=== PATIENT | female | born 1995 | race Caucasian/White ===

== ENCOUNTER → 2016-11-25 | Outpatient (REF) | payer OTHER ==
[~2016-11-25] MED LIST: COLA100C3 PO; MOTR200T44 PO; PRENTAB40 PO; TYLE167L PO
== END ==
LOC: M SFHCLERA 17:16
PROVIDERS: ATTEND Nurse Practitioner Family
DX: J02.9 Acute pharyngitis, unspecified (principal)

== ENCOUNTER → 2018-07-31 | Outpatient (REF) | payer OTHER ==
[~2018-07-31] MED LIST changes: -COLA100C3 PO; +COLA100C5 PO
== END ==
LOC: M SFHCLERA 13:18
PROVIDERS: ATTEND Nurse Practitioner Family
DX: R53.81 Other malaise (principal)

== ENCOUNTER → 2021-05-16 | Outpatient (REF) | payer OTHER ==
[2021-05-16 21:58] LABS: APPEARANCE, URINE HAZY (CLEAR); BACTERIA, URINE AUTO NEGATIVE (NEGATIVE); BILIRUBIN, URINE AUTO NEGATIVE (NEGATIVE); BLOOD, URINE BLOOD NEGATIVE (NEGATIVE); COLOR, URINE YELLOW (YELLOW); GLUCOSE, URINE (UA) AUTO NEGATIVE (NEGATIVE); KETONE, URINE AUTO NEGATIVE (NEGATIVE); LEUKOCYTE ESTERASE, URINE AUTO 1+ (NEGATIVE); MUCUS, URINE SMALL (NEGATIVE); NITRITE, URINE AUTO NEGATIVE (NEGATIVE); PROTEIN, URINE AUTO NEGATIVE (NEGATIVE); RBC, URINE AUTO 1 /HPF (0-3); SPECIFIC GRAVITY URINE AUTO 1.016 (1.002-1.035); SQUAMOUS EPITHELIAL CELL UR AU 3 /HPF (0-6); UROBILINOGEN, URINE AUTO 0.2 mg/dL (0.0-2.0); WBC, URINE AUTO 4 /HPF (0-3)
== END ==
LOC: M LAB REF 21:29
PROVIDERS: ATTEND Physician Assistant
DX: R30.0 Dysuria (principal)

== ENCOUNTER → 2022-02-17 | Outpatient (CLI) | payer OTHER | LOC: M PLALAB 10:38 | PROVIDERS: ATTEND Advanced Practice Midwife | DX: E04.9 Nontoxic goiter, unspecified (principal); Z12.4 Encounter for screening for malignant neoplasm of cervix | CPT/HCPCS: 36415; 84443; G0123 ==